=== PATIENT | female | born 1945 | race Caucasian/White ===

== ENCOUNTER 2017-02-02 16:45 | Inpatient (IN) | payer MEDICARE, MEDICAID ==
[~2017-02-02] VITALS: Ht 152.4 cm; Wt 64.9 kg
[2017-02-02 17:00] VITALS: BP 131/69
[2017-02-02 17:30] VITALS: BP 131/69
[2017-02-02] MEDS ORDERED: DEXTROSE 50% WATER 50ML SYRINGE IV PRN (17:45)
[2017-02-02] MEDS ORDERED: MORPHINE SULFATE 2 MG/ML CPJ (NOT FOR IM USE) IV PRN (17:45)
[2017-02-02] MEDS ORDERED: ONDANSETRON HCL 4MG/2ML VIAL IV PRN (17:45)
[2017-02-02] MEDS ORDERED: VANCOMYCIN 1,250 MG in DEXT 5% WATER 250 ML IV SCH (21:00)
[2017-02-02] MEDS: INSULIN LISPRO 100 UNITS/ML SUBCUT SCH (21:00)
[2017-02-02] MEDS: BLOOD SUGAR DIAGNOSTIC STRIP TEST SCH (21:00)
[2017-02-02] MEDS: ATORVASTATIN CALCIUM 10MG TABLET PO SCH (22:20)
[2017-02-03] MEDS: BLOOD SUGAR DIAGNOSTIC STRIP TEST SCH ×4 (06:30→21:29)
[2017-02-03 07:08] LABS: ALANINE AMINOTRANSFERASE < 6 IU/L (13-61); ALBUMIN 1.9 g/dL (3.4-5.0); ANION GAP 14; CALCIUM 8.9 mg/dL (8.5-10.1); CARBON DIOXIDE 26 mEq/L (21-32); CHLORIDE 104 mEq/L (98-107); INDEX HEMOLYSI 2 (1-3); INDEX ICTERIC 1 (1-4); INDEX LIPEMIC 1 (1-3); UREA NITROGEN BLOOD 23 mg/dL (7-21)
[2017-02-03 07:09] LABS: eGFR 14 mL/min (>60)
[2017-02-03 07:19] LABS: HEMATOCRIT 29.4 % (36.0-48.0); HEMOGLOBIN 9.5 g/dL (12.0-16.0); MEAN CORPUSCULAR HEMOGLOBIN 33.6 pg (28.0-32.0); MEAN CORPUSCULAR HGB CONC 32.5 g/dL (31.0-37.0); MEAN CORPUSCULAR VOLUME 103.4 fL (81.0-99.0); PLATELET 190 x1000/uL (130-400); RED BLOOD CELL COUNT 2.84 mill/uL (4.2-5.4); RED CELL DISTRIBUTION WIDTH 18.8 % (11.6-14.6); WHITE BLOOD COUNT 15.9 x1000/uL (4.5-11.0)
[2017-02-03] MEDS: INSULIN LISPRO 100 UNITS/ML SUBCUT SCH ×4 (07:26→16:35)
[2017-02-03 07:54] LABS: ALBUMIN 1.8 g/dL (3.4-5.0); CALCIUM 8.9 mg/dL (8.5-10.1); PHOSPHORUS 3.7 mg/dL (2.5-4.9)
[2017-02-03 07:55] LABS: PREALBUMIN 4.2 mg/dL (20.0-40.0)
[2017-02-03 08:00] VITALS: BP 111/57
[2017-02-03] MEDS: CLOPIDOGREL 75MG TABLET PO SCH (08:49)
[2017-02-03] MEDS: ASPIRIN 81MG TABLET PO SCH (08:49)
[2017-02-03] MEDS: ENOXAPARIN 30MG/0.3ML SYR SUBCUT SCH (09:47)
[2017-02-03] MEDS ORDERED: OXYCODONE HCL/ACETAMINOPHEN 5/325MG TABLET PO PRN (13:30)
[2017-02-03 17:12] LABS: INR 1.3
[2017-02-03 20:00] VITALS: BP 106/41
[2017-02-03] MEDS ORDERED: NA PHOS,M-B/NA PHOS,DI-BA ENEMA 118ML PR NR (20:45)
[2017-02-03] MEDS: LACTULOSE 20G/30ML UDC PO SCH (21:29)
[2017-02-03] MEDS: ATORVASTATIN CALCIUM 10MG TABLET PO SCH (21:29)
[2017-02-04] MEDS: BLOOD SUGAR DIAGNOSTIC STRIP TEST SCH ×4 (07:26→20:51)
[2017-02-04 08:00] VITALS: BP 148/46
[2017-02-04 08:41] VITALS: BP 148/65
[2017-02-04] MEDS: LACTULOSE 20G/30ML UDC PO SCH (09:00)
[2017-02-04] MEDS: INSULIN LISPRO 100 UNITS/ML SUBCUT SCH ×4 (09:00→20:51)
[2017-02-04] MEDS: ASPIRIN 81MG TABLET PO SCH (09:10)
[2017-02-04] MEDS: CLOPIDOGREL 75MG TABLET PO SCH (09:10)
[2017-02-04] MEDS: ENOXAPARIN 30MG/0.3ML SYR SUBCUT SCH (09:11)
[2017-02-04 20:40] VITALS: BP 120/60
[2017-02-04] MEDS: ATORVASTATIN CALCIUM 10MG TABLET PO SCH (20:52)
[2017-02-04] MEDS ORDERED: LACTULOSE 20G/30ML UDC PO PRN (21:15)
[2017-02-04] MEDS ORDERED: NA PHOS,M-B/NA PHOS,DI-BA ENEMA 118ML PR NR (21:32)
[2017-02-04] MEDS ORDERED: LACTULOSE 20G/30ML UDC PO NR (21:33)
[2017-02-04 23:44] VITALS: BP 143/83
[2017-02-05 05:54] LABS: BASOPHILS % 0.8 % (0.0-2.0); DIFFERENTIAL COMMENT 0; EOSINOPHILS % 6.5 % (0.0-5.0); HEMATOCRIT. 26.7 % (36.0-48.0); HEMOGLOBIN. 8.7 g/dL (12.0-16.0); LYMPHOCYTES % 12.1 % (20.0-50.0); MEAN CORPUSCULAR HEMOGLOBIN 33.5 pg (28.0-32.0); MEAN CORPUSCULAR HGB CONC 32.8 g/dL (31.0-37.0); MEAN CORPUSCULAR VOLUME 102.3 fL (81.0-99.0); MEAN PLATELET VOLUME 9.1 fl (7.4-10.4); MONOCYTES % 6.2 % (2.0-8.0); NEUTROPHILS % 74.4 % (40.0-76.0); PLATELET 191 x1000/uL (130-400); RED BLOOD CELL COUNT 2.61 mill/uL (4.2-5.4); RED CELL DISTRIBUTION WIDTH 18.5 % (11.6-14.6)
[2017-02-05] MEDS: BLOOD SUGAR DIAGNOSTIC STRIP TEST SCH ×4 (06:25→21:54)
[2017-02-05 07:03] LABS: CALCIUM 8.4 mg/dL (8.5-10.1); PHOSPHORUS 2.9 mg/dL (2.5-4.9)
[2017-02-05] MEDS: INSULIN LISPRO 100 UNITS/ML SUBCUT SCH ×3 (07:18→16:35)
[2017-02-05 08:00] VITALS: BP 133/111
[2017-02-05] MEDS: DOCUSATE SODIUM 250MG CAPSULE PO SCH ×2 (08:54→16:34)
[2017-02-05] MEDS: CLOPIDOGREL 75MG TABLET PO SCH (08:55)
[2017-02-05] MEDS: ENOXAPARIN 30MG/0.3ML SYR SUBCUT SCH (08:55)
[2017-02-05] MEDS: ASPIRIN 81MG TABLET PO SCH (08:55)
[2017-02-05 09:32] LABS: FOLIC ACID (FOLATE) SERUM 3.9 ng/mL (>5.38)
[2017-02-05 20:00] VITALS: BP 105/67
[2017-02-05] MEDS: ATORVASTATIN CALCIUM 10MG TABLET PO SCH (21:55)
[2017-02-05] MEDS: POLYETHYLENE GLYCOL 3350 (17GM) 1 DOSE PACK PO SCH (21:58)
[2017-02-06] MEDS: BLOOD SUGAR DIAGNOSTIC STRIP TEST SCH ×4 (06:30→21:00)
[2017-02-06 06:45] LABS: BASOPHILS % 1.1 % (0.0-2.0); DIFFERENTIAL COMMENT 0; EOSINOPHILS % 14.4 % (0.0-5.0); HEMATOCRIT. 26.3 % (36.0-48.0); HEMOGLOBIN. 8.6 g/dL (12.0-16.0); LYMPHOCYTES % 11.1 % (20.0-50.0); MEAN CORPUSCULAR HEMOGLOBIN 33.5 pg (28.0-32.0); MEAN CORPUSCULAR HGB CONC 32.7 g/dL (31.0-37.0); MEAN CORPUSCULAR VOLUME 102.5 fL (81.0-99.0); MONOCYTES % 5.7 % (2.0-8.0); NEUTROPHILS % 67.7 % (40.0-76.0); PLATELET 207 x1000/uL (130-400); RED BLOOD CELL COUNT 2.56 mill/uL (4.2-5.4); RED CELL DISTRIBUTION WIDTH 18.7 % (11.6-14.6); WHITE BLOOD COUNT 16.1 x1000/uL (4.5-11.0)
[2017-02-06 07:59] LABS: T4 FREE 0.85 ng/dL (0.76-1.46)
[2017-02-06 08:00] VITALS: BP 108/36
[2017-02-06] MEDS: DOCUSATE SODIUM 250MG CAPSULE PO SCH ×2 (08:25→17:20)
[2017-02-06] MEDS: ASPIRIN 81MG TABLET PO SCH (08:25)
[2017-02-06] MEDS: CLOPIDOGREL 75MG TABLET PO SCH (08:25)
[2017-02-06] MEDS: FOLIC ACID 1MG TABLET PO SCH (08:25)
[2017-02-06] MEDS: ENOXAPARIN 30MG/0.3ML SYR SUBCUT SCH (08:25)
[2017-02-06 20:00] VITALS: BP 92/49
[2017-02-06] MEDS ORDERED: VANCOMYCIN 500 MG PREMIX 100 ML IV SCH (22:00)
[2017-02-06 23:00] VITALS: BP 106/62
[2017-02-07 06:10] VITALS: BP 116/58
[2017-02-07] MEDS: ATORVASTATIN CALCIUM 10MG TABLET PO SCH ×2 (06:19→21:52)
[2017-02-07] MEDS: BLOOD SUGAR DIAGNOSTIC STRIP TEST SCH ×4 (06:19→21:55)
[2017-02-07] MEDS: POLYETHYLENE GLYCOL 3350 (17GM) 1 DOSE PACK PO SCH ×2 (06:19→21:52)
[2017-02-07 08:00] VITALS: BP 99/46
[2017-02-07] MEDS: CLOPIDOGREL 75MG TABLET PO SCH (08:48)
[2017-02-07] MEDS: ASPIRIN 81MG TABLET PO SCH (08:48)
[2017-02-07] MEDS: DOCUSATE SODIUM 250MG CAPSULE PO SCH ×2 (08:49→17:53)
[2017-02-07] MEDS: FOLIC ACID 1MG TABLET PO SCH (08:49)
[2017-02-07] MEDS: ENOXAPARIN 30MG/0.3ML SYR SUBCUT SCH (08:50)
[2017-02-07 17:05] LABS: BASOPHILS % 1.2 % (0.0-2.0); DIFFERENTIAL COMMENT 0; EOSINOPHILS % 12.3 % (0.0-5.0); HEMATOCRIT. 27.5 % (36.0-48.0); HEMOGLOBIN. 8.9 g/dL (12.0-16.0); LYMPHOCYTES % 9.7 % (20.0-50.0); MEAN CORPUSCULAR HEMOGLOBIN 33.5 pg (28.0-32.0); MEAN CORPUSCULAR HGB CONC 32.2 g/dL (31.0-37.0); MEAN CORPUSCULAR VOLUME 103.9 fL (81.0-99.0); MEAN PLATELET VOLUME 8.7 fl (7.4-10.4); MONOCYTES % 5.7 % (2.0-8.0); NEUTROPHILS % 71.1 % (40.0-76.0); PLATELET 201 x1000/uL (130-400); RED BLOOD CELL COUNT 2.65 mill/uL (4.2-5.4); RED CELL DISTRIBUTION WIDTH 19.2 % (11.6-14.6); WHITE BLOOD COUNT 16.6 x1000/uL (4.5-11.0)
[2017-02-07 17:18] LABS: CALCIUM 8.8 mg/dL (8.5-10.1); MAGNESIUM 2.1 mg/dL (1.8-2.4); PHOSPHORUS 2.7 mg/dL (2.5-4.9)
[2017-02-07 20:00] VITALS: BP 114/58
[2017-02-08] MEDS: BLOOD SUGAR DIAGNOSTIC STRIP TEST SCH ×4 (06:40→21:00)
[2017-02-08 07:28] LABS: HEMATOCRIT. 27.6 % (36.0-48.0); HEMOGLOBIN. 8.8 g/dL (12.0-16.0); MEAN CORPUSCULAR VOLUME 106.2 fL (81.0-99.0); MEAN PLATELET VOLUME 8.8 fl (7.4-10.4); PLATELET 194 x1000/uL (130-400); RED CELL DISTRIBUTION WIDTH 19.3 % (11.6-14.6); WHITE BLOOD COUNT 14.4 x1000/uL (4.5-11.0)
[2017-02-08 07:36] LABS: DIFFERENTIAL COMMENT 1
[2017-02-08 07:57] LABS: CALCIUM 8.8 mg/dL (8.5-10.1); MAGNESIUM 2.3 mg/dL (1.8-2.4); PHOSPHORUS 3.2 mg/dL (2.5-4.9)
[2017-02-08 08:00] VITALS: BP 117/69
[2017-02-08] MEDS: CLOPIDOGREL 75MG TABLET PO SCH (09:41)
[2017-02-08] MEDS: DOCUSATE SODIUM 250MG CAPSULE PO SCH ×2 (09:41→17:47)
[2017-02-08] MEDS: ASPIRIN 81MG TABLET PO SCH (09:41)
[2017-02-08] MEDS: FOLIC ACID 1MG TABLET PO SCH (09:41)
[2017-02-08] MEDS: ENOXAPARIN 30MG/0.3ML SYR SUBCUT SCH (09:43)
[2017-02-08 14:19] LABS: 25-HYDROXY VITAMIN D3 20 ng/mL (.)
[2017-02-08] MEDS ORDERED: ZINC SULFATE 220 MG ( 50 ) CAPSULE PO SCH (14:30)
[2017-02-08] MEDS: ZINC SULFATE 220 MG ( 50 ) CAPSULE PO SCH (17:47)
[2017-02-08] MEDS: ACETAMINOPHEN 650MG/20.3ML UDC PO PRN (17:57)
[2017-02-08 20:00] VITALS: BP 104/57
[2017-02-08] MEDS ORDERED: HEPARIN SODIUM 1,000 UNIT/1ML VIAL IV NR (20:02)
[2017-02-08] MEDS: ATORVASTATIN CALCIUM 10MG TABLET PO SCH (22:36)
[2017-02-08] MEDS: POLYETHYLENE GLYCOL 3350 (17GM) 1 DOSE PACK PO SCH (22:37)
[2017-02-09] MEDS: ACETAMINOPHEN 650MG/20.3ML UDC PO PRN (03:15)
[2017-02-09] MEDS: BLOOD SUGAR DIAGNOSTIC STRIP TEST SCH ×4 (06:21→20:47)
[2017-02-09 06:47] LABS: BASOPHILS % 2.1 % (0.0-2.0); DIFFERENTIAL COMMENT 0; EOSINOPHILS % 14.9 % (0.0-5.0); HEMATOCRIT. 26.4 % (36.0-48.0); HEMOGLOBIN. 8.5 g/dL (12.0-16.0); LYMPHOCYTES % 11.4 % (20.0-50.0); MEAN CORPUSCULAR HEMOGLOBIN 33.7 pg (28.0-32.0); MEAN CORPUSCULAR HGB CONC 32.1 g/dL (31.0-37.0); MEAN CORPUSCULAR VOLUME 105.1 fL (81.0-99.0); MEAN PLATELET VOLUME 9.1 fl (7.4-10.4); MONOCYTES % 6.4 % (2.0-8.0); NEUTROPHILS % 65.2 % (40.0-76.0); PLATELET 169 x1000/uL (130-400); RED BLOOD CELL COUNT 2.52 mill/uL (4.2-5.4); RED CELL DISTRIBUTION WIDTH 18.9 % (11.6-14.6); WHITE BLOOD COUNT 14.2 x1000/uL (4.5-11.0)
[2017-02-09 07:13] LABS: CALCIUM 8.6 mg/dL (8.5-10.1); MAGNESIUM 2.1 mg/dL (1.8-2.4); PHOSPHORUS 2.6 mg/dL (2.5-4.9)
[2017-02-09 08:00] VITALS: BP 103/49
[2017-02-09] MEDS: ASPIRIN 81MG TABLET PO SCH (09:28)
[2017-02-09] MEDS: ZINC SULFATE 220 MG ( 50 ) CAPSULE PO SCH (09:28)
[2017-02-09] MEDS: FOLIC ACID 1MG TABLET PO SCH (09:28)
[2017-02-09] MEDS: CLOPIDOGREL 75MG TABLET PO SCH (09:28)
[2017-02-09] MEDS: DOCUSATE SODIUM 250MG CAPSULE PO SCH ×2 (09:28→16:08)
[2017-02-09] MEDS: ENOXAPARIN 30MG/0.3ML SYR SUBCUT SCH (09:29)
[2017-02-09 13:36] LABS: ANISOCYTOSIS 1+; PLATELET ESTIMATE NORMAL; TARGET CELLS 1+
[2017-02-09] MEDS ORDERED: ERGOCALCIFEROL 50000UNITS CAPSULE PO SCH (16:30)
[2017-02-09 20:00] VITALS: BP 95/51
[2017-02-09] MEDS: POLYETHYLENE GLYCOL 3350 (17GM) 1 DOSE PACK PO SCH (20:49)
[2017-02-09] MEDS: ATORVASTATIN CALCIUM 10MG TABLET PO SCH (20:50)
[2017-02-10] MEDS: BLOOD SUGAR DIAGNOSTIC STRIP TEST SCH ×4 (06:06→20:29)
[2017-02-10 08:00] VITALS: BP 134/83
[2017-02-10] MEDS: CLOPIDOGREL 75MG TABLET PO SCH (08:04)
[2017-02-10] MEDS: ZINC SULFATE 220 MG ( 50 ) CAPSULE PO SCH (08:04)
[2017-02-10] MEDS: DOCUSATE SODIUM 250MG CAPSULE PO SCH ×2 (08:04→16:42)
[2017-02-10] MEDS: ENOXAPARIN 30MG/0.3ML SYR SUBCUT SCH (08:04)
[2017-02-10] MEDS: ASPIRIN 81MG TABLET PO SCH (08:04)
[2017-02-10] MEDS: FOLIC ACID 1MG TABLET PO SCH (08:04)
[2017-02-10 20:00] VITALS: BP 107/71
[2017-02-10] MEDS: ATORVASTATIN CALCIUM 10MG TABLET PO SCH (20:29)
[2017-02-10] MEDS: ACETAMINOPHEN 650MG/20.3ML UDC PO PRN (20:29)
[2017-02-10] MEDS: POLYETHYLENE GLYCOL 3350 (17GM) 1 DOSE PACK PO SCH (20:29)
[2017-02-11] MEDS: BLOOD SUGAR DIAGNOSTIC STRIP TEST SCH ×2 (06:37→11:15)
[2017-02-11 08:00] VITALS: BP 131/84
[2017-02-11] MEDS: DOCUSATE SODIUM 250MG CAPSULE PO SCH (08:49)
[2017-02-11] MEDS: FOLIC ACID 1MG TABLET PO SCH (08:49)
[2017-02-11] MEDS: ASPIRIN 81MG TABLET PO SCH (08:49)
[2017-02-11] MEDS: ZINC SULFATE 220 MG ( 50 ) CAPSULE PO SCH (08:49)
[2017-02-11] MEDS: CLOPIDOGREL 75MG TABLET PO SCH (08:49)
[2017-02-11] MEDS: ENOXAPARIN 30MG/0.3ML SYR SUBCUT SCH (08:50)
[2017-02-11 10:47] VITALS: BP 131/84
== END 2017-02-11 12:30 | disposition home or self-care (01) | DRG 64 ==
PROVIDERS: ADMIT Physical Medicine & Rehabilitation Spinal Cord Injury Medicine; ATTEND Internal Medicine Nephrology
PROC: 5A1D60Z (ICD-10-PCS; principal; 2017-02-04)
DX: I63.412 Cerebral infarction due to embolism of left middle cerebral artery (principal); N18.6 End stage renal disease; G93.40 Encephalopathy, unspecified; E43 Unspecified severe protein-calorie malnutrition; I12.0 Hypertensive chronic kidney disease with stage 5 chronic kidney disease or end stage renal disease; G81.91 Hemiplegia, unspecified affecting right dominant side; J98.11 Atelectasis; E11.22 Type 2 diabetes mellitus with diabetic chronic kidney disease; Z66 Do not resuscitate; E78.00 Pure hypercholesterolemia, unspecified; R13.10 Dysphagia, unspecified; R47.1 Dysarthria and anarthria; D72.829 Elevated white blood cell count, unspecified; G89.29 Other chronic pain; R26.9 Unspecified abnormalities of gait and mobility; D63.8 Anemia in other chronic diseases classified elsewhere; E03.9 Hypothyroidism, unspecified; E83.51 Hypocalcemia; F09 Unspecified mental disorder due to known physiological condition; F39 Unspecified mood [affective] disorder; I27.2 Other secondary pulmonary hypertension; I07.1 Rheumatic tricuspid insufficiency; R47.01 Aphasia; Z86.73 Personal history of transient ischemic attack (TIA), and cerebral infarction without residual deficits; Z92.3 Personal history of irradiation; Z87.891 Personal history of nicotine dependence; Z85.42 Personal history of malignant neoplasm of other parts of uterus; Z99.2 Dependence on renal dialysis; Z90.710 Acquired absence of both cervix and uterus; Z68.27 Body mass index [BMI] 27.0-27.9, adult; Z92.21 Personal history of antineoplastic chemotherapy; Z83.3 Family history of diabetes mellitus; Z82.49 Family history of ischemic heart disease and other diseases of the circulatory system
CPT/HCPCS: 36415; 71020; 80048; 80053; 80061; 80069; 80202; 82024; 82306; 82533; 82607; 82728; 82746; 82962; 83036; 83540; 83550; 83735; 84100; 84134; 84439; 84443; 84630; 85025; 85027; 85610; 86376; 92523; 92610; 93970; 97110; 97112; 97116; 97150; 97163; 97167; 97530; 97532; 97535; A6261; J1650; J2405; J3370; J7030; J7040; J7050; J7060